=== PATIENT | male | born 1980 | race Two or more races ===

== ENCOUNTER 2019-04-25 05:46 | Emergency (ER) | payer MEDICAID ==
[~2019-04-25] VITALS: Ht 175.3 cm; Wt 108.9 kg
--- NOTE | 2019-04-25 05:46 | NUR ---
BIB EMS C/O NONRADIATING CP, HEADACHE, FLU LIKE SYMPTOM X2 DAYS
[2019-04-25] MEDS ORDERED: ACETAMINOPHEN 650 MG/20.3 ML UDC ONE (05:59)
[2019-04-25] MEDS ORDERED: ACETAMINOPHEN 325 MG TABLET PO ONE (06:00)
[2019-04-25] MEDS ORDERED: VANCOMYCIN 1 GM in IV D5W 250 ML IV ONE (06:30)
[2019-04-25] MEDS ORDERED: CEFEPIME 1 GM in IV D5W 50 ML IV ONE (06:30)
[2019-04-25] MEDS ORDERED: IV NS 0.9% 1,000 ML BAG IV ONE (06:30)
[2019-04-25] MEDS ORDERED: ACETAMINOPHEN ES 500 MG TABLET PO ONE (06:30)
--- NOTE | 2019-04-25 06:30 | NUR ---
IV INITIATED LAC 18G. LABS DRAWN FROM SITE. CALLED LAB FOR AXLE POLISHER. IV INTACT AND PATENT, PLACED ON SALINE LOCK
[2019-04-25] MEDS ORDERED: CEFEPIME 1 GM VIAL ONE (06:35)
--- NOTE | 2019-04-25 06:39 | NUR ---
PER LYNNETTE MARES TO START IV ANTIBIOTICS BEFORE URINE CULTURE
[2019-04-25 06:56] LABS: BASOPHILS % (AUTO) 0.5 % (0.0-2.0); EOSINOPHILS % (AUTO) 0.3 % (0.0-6.0); HEMATOCRIT 42 % (39-51); HEMOGLOBIN 14.3 g/dL (13.5-17.5); LYMPHOCYTES # (AUTO) 1.3 /CMM (0.8-4.8); LYMPHOCYTES % (AUTO) 16.4 % (20.0-44.0); MEAN CORPUSCULAR HGB CONC 34 g/dl (31.0-36.0); MEAN CORPUSCULAR VOLUME 88 fL (80-96); MONOCYTES # (AUTO) 0.6 /CMM (0.1-1.30); MONOCYTES % (AUTO) 7.6 % (2.0-12.0); NEUTROPHILS # (AUTO) 5.9 /CMM (1.8-8.9); NEUTROPHILS % (AUTO) 75.2 % (43.0-81.0); PLATELET COUNT (AUTO) 230 /CMM (150-450); RED BLOOD CELL COUNT(AUTO) 4.73 MIL/uL (4.5-6.0); WHITE BLOOD COUNT (AUTO) 7.8 K/uL (4.3-11.0)
[2019-04-25 07:12] LABS: ALANINE AMINOTRANSFERASE 30 U/L (12-78); ALBUMIN 3.5 g/dL (3.4-5.0); ALKALINE PHOSPHATASE 62 U/L (46-116); ASPARTATE AMINOTRANSFERASE 18 U/L (15-37); BILIRUBIN,DIRECT 0.1 mg/dL (0.0-0.2); BILIRUBIN,TOTAL 0.2 mg/dL (0.2-1.0); CALCIUM, SERUM 8.6 mg/dL (8.5-10.1); CARBON DIOXIDE 24 mmol/L (21-32); CHLORIDE 102 mmol/L (98-107); GLUCOSE 109 mg/dL (74-106); SODIUM SERUM 137 mmol/L (136-145); TOTAL PROTEIN, SERUM 7.9 g/dL (6.4-8.2); UREA NITROGEN, BLOOD 14 mg/dL (7-18)
--- NOTE | 2019-04-25 07:41 | NUR ---
ENDORSED PT TO FRANCOISE FLYNN TO URVASHI
--- NOTE | 2019-04-25 08:53 | NUR ---
Patient AA/Ox4, denies chest pain, no distress noted. IV removed. Catheter intact and site benign. Pressure and 4x4 applied to site. No bleeding noted. Patient discharged to home in stable condition. Written and verbal after care instructions given. Patient verbalizes understanding of instruction.
[2019-04-25 08:56] VITALS: BP 111/69
== END 2019-04-25 08:57 | disposition home or self-care (01) ==
LOC: ER 05:52
DX: J18.9 Pneumonia, unspecified organism (principal); F19.10 Other psychoactive substance abuse, uncomplicated; F10.10 Alcohol abuse, uncomplicated; R00.0 Tachycardia, unspecified; R51 Headache
CPT/HCPCS: 36415; 71045; 80048; 80076; 83605; 84145; 84484; 85025; 85730; 87040 ×2; 93005; 96365; 96368; 99284; J0692; J7030; J7040; J7060 ×3